=== PATIENT | male | born 1975 | race Caucasian/White ===

== ENCOUNTER 2016-09-16 15:55 | Observation (INO) | payer OTHER ==
[2016-09-16] MEDS ORDERED: NITROGLYCERIN SL TABS 0.4 MG TAB SUBLINGUAL STA (17:04)
[2016-09-16] MEDS ORDERED: ASPIRIN 81 MG CHEW PO STA (17:04)
[2016-09-16] MEDS ORDERED: SODIUM CHLORIDE 0.9% 1,000 ML IV STA (17:04)
--- NOTE | 2016-09-16 17:06 | ED ---
General Adult HPI - General Source: patient, RN notes reviewed Mode of arrival: wheelchair Limitations: no limitations <Ankush Aceves - Last Filed: 09/16/16 17:07> <Justin Bernardo - Last Filed: 09/16/16 19:01> - General Chief complaint: Chest Pain Stated complaint: chest pain Time Seen by Provider: 09/16/16 16:59 - History of Present Illness Initial comments: Patient a 40-year-old male who presents emergency room today with chief complaint of chest pain. Patient does admit that he's had some symptoms of chest pressure off and on over the last few weeks. He states he has been somewhat constant severity goes up and down. He does admit that he's had some sharp pain that is new over the last few days. States he did have a scheduled appointment with family doctor today who did discuss this and was advised coming here to the emergency room for further evaluation. Patient mitts to a history of diabetes. He denies any other past medical complaints. He denies any other symptoms at this time. Patient denies any recent fever, chills, shortness of breath, back pain, abdominal pain, nausea or vomiting, numbness or tingling, dysuria or hematuria, constipation or diarrhea, headaches or visual changes, or any other complaints. (Ankush Aceves) - Related Data Allergies Allergy/AdvReac Type Severity Reaction Status Date / Time No Known Allergies Allergy Verified 09/16/16 17:08 Review of Systems ROS Other: All systems not noted in ROS Statement are negative. <Ankush Aceves - Last Filed: 09/16/16 17:07> ROS Other: All systems not noted in ROS Statement are negative. <Justin Bernardo - Last Filed: 09/16/16 19:01> ROS Statement: Those systems with pertinent positive or pertinent negative responses have been documented in the HPI. Past Medical History Past Medical History: Diabetes Mellitus Additional Past Medical History / Comment(s): sleep apnea History of Any Multi-Drug Resistant Organisms: None Reported Past Surgical History: Back Surgery Past Psychological History: Depression Smoking Status: Never smoker Past Alcohol Use History: None Reported Past Drug Use History: None Reported <Ankush Aceves - Last Filed: 09/16/16 17:07> General Exam Limitations: no limitations <Ankush Aceves - Last Filed: 09/16/16 17:07> General appearance: alert, in no apparent distress, anxious Head exam: Present: atraumatic, normocephalic, normal inspection Eye exam: Present: normal appearance, PERRL, EOMI. Absent: scleral icterus, conjunctival injection, periorbital swelling ENT exam: Present: normal exam, mucous membranes moist Neck exam: Present: normal inspection. Absent: tenderness, meningismus, lymphadenopathy Respiratory exam: Present: normal lung sounds bilaterally. Absent: respiratory distress, wheezes, rales, rhonchi, stridor Cardiovascular Exam: Present: regular rate, normal rhythm, normal heart sounds. Absent: systolic murmur, diastolic murmur, rubs, gallop, clicks GI/Abdominal exam: Present: soft, normal bowel sounds. Absent: distended, tenderness, guarding, rebound, rigid Extremities exam: Present: normal inspection, full ROM, normal capillary refill. Absent: tenderness, pedal edema, joint swelling, calf tenderness Back exam: Present: normal inspection Neurological exam: Present: alert, oriented X3, CN II-XII intact Psychiatric exam: Present: normal affect, normal mood Skin exam: Present: warm, dry, intact, normal color. Absent: rash <Justin Bernardo - Last Filed: 09/16/16 19:01> - General Exam Comments Initial Comments: General: The patient is awake and alert, in no distress, and does not appear acutely ill. Eye: Pupils are equal, round and reactive to light, extra-ocular movements are intact. No nystagmus. There is normal conjunctiva bilaterally. No signs of icterus. Ears, nose, mouth and throat: There are moist mucous membranes and no oral lesions. Neck: The neck is supple, there is no tenderness or JVD. Cardiovascular: There is a regular rate and rhythm. No murmur, rub or gallop is appreciated. Pain reproduced on palpation anterior chest wall. Respiratory: Lungs are clear to auscultation, respirations are non-labored, breath sounds are equal. No wheezes, stridor, rales, or rhonchi. Gastrointestinal: Soft, non-distended, non-tender abdomen without masses or organomegaly noted. There is no rebound or guarding present. No CVA tenderness. Bowel sounds are unremarkable. Musculoskeletal: Normal ROM. Strength 5/5. Sensation intact. Pulses equal bilaterally 2+. Neurological: A&O x 3. CN II-XII intact, There are no obvious motor or sensory deficits. Coordination appears grossly intact. Speech is normal. Skin: Skin is warm and dry and no rashes or lesions are noted. Psychiatric: Cooperative, appropriate mood & affect, normal judgment. (Ankush Aceves) Course <Ankush Aceves - Last Filed: 09/16/16 17:07> <Justin Bernardo - Last Filed: 09/16/16 19:01> Vital Signs 09/16/16 09/16/16 16:43 18:11 Temperature 98.2 F Pulse Rate 84 75 Respiratory 18 16 Rate Blood Pressure 162/91 142/98 O2 Sat by Pulse 98 98 Oximetry - Reevaluation(s) Reevaluation #1: 09/16/16 19:00 Patient does remain with chest pain (Jutsin Bernardo) EKG Findings - EKG Comments: EKG Findings:: EKG performed at 1651: A 12-lead EKG was performed and interpreted by me as showing the following: Rate is 77, and rhythm is normal sinus. There are normal QRS complexes and normal R-wave progression. ST segments have no elevation or depression, and SC segments appear normal. <Ankush Aceves - Last Filed: 09/16/16 17:07> Medical Decision Making <Ankush Aceves - Last Filed: 09/16/16 17:07> - Lab Data Result diagrams: 09/16/16 17:15 09/16/16 17:15 - Radiology Data Radiology results: report reviewed (Chest x-ray is negative for acute disease) <Justin Bernardo - Last Filed: 09/16/16 19:01> - Medical Decision Making 40 male here for evaluation of chest pain. History of diabetes. EKG and troponin are negative. Patient be admitted for cardiac observation trying a troponin telemetry (Justin Bernardo) - Lab Data Lab Results 09/16/16 09/16/16 09/16/16 Range/Units 17:15 17:15 17:15 WBC 8.7 (3.8-10.6) k/uL RBC 4.93 (4.30-5.90) m/uL Hgb 14.2 (13.0-17.5) gm/dL Hct 41.5 (39.0-53.0) % MCV 84.3 (80.0-100.0) fL MCH 28.7 (25.0-35.0) pg MCHC 34.1 (31.0-37.0) g/dL RDW 13.0 (11.5-15.5) % Plt Count 301 (150-450) k/uL Neutrophils % 60 % Lymphocytes % 29 % Monocytes % 5 % Eosinophils % 3 % Basophils % 1 % Neutrophils # 5.2 (1.3-7.7) k/uL Lymphocytes # 2.5 (1.0-4.8) k/uL Monocytes # 0.5 (0-1.0) k/uL Eosinophils # 0.3 (0-0.7) k/uL Basophils # 0.1 (0-0.2) k/uL PT (9.0-12.0) sec INR (<1.1) APTT (22.0-30.0) sec Sodium 142 (137-145) mmol/L Potassium 3.9 (3.5-5.1) mmol/L Chloride 105 (98-107) mmol/L Carbon Dioxide 27 (22-30) mmol/L Anion Gap 10 mmol/L BUN 9 (9-20) mg/dL Creatinine 0.86 (0.66-1.25) mg/dL Est GFR (MDRD) Af Amer >60 (>60 ml/min/1.73 sqM) Est GFR (MDRD) Non-Af >60 (>60 ml/min/1.73 sqM) Glucose 88 (74-99) mg/dL Calcium 9.6 (8.4-10.2) mg/dL Magnesium 2.0 (1.6-2.3) mg/dL Total Bilirubin 0.5 (0.2-1.3) mg/dL AST 28 (17-59) U/L ALT 54 (21-72) U/L Alkaline Phosphatase 88 (38-126) U/L Total Creatine Kinase 99 (55-170) U/L CK-MB (CK-2) 0.3 (0.0-2.4) ng/mL CK-MB (CK-2) Rel Index 0.3 Troponin I <0.012 (0.000-0.034) ng/mL Total Protein 7.6 (6.3-8.2) g/dL Albumin 4.5 (3.5-5.0) g/dL 09/16/16 Range/Units 17:15 WBC (3.8-10.6) k/uL RBC (4.30-5.90) m/uL Hgb (13.0-17.5) gm/dL Hct (39.0-53.0) % MCV (80.0-100.0) fL MCH (25.0-35.0) pg MCHC (31.0-37.0) g/dL RDW (11.5-15.5) % Plt Count (150-450) k/uL Neutrophils % % Lymphocytes % % Monocytes % % Eosinophils % % Basophils % % Neutrophils # (1.3-7.7) k/uL Lymphocytes # (1.0-4.8) k/uL Monocytes # (0-1.0) k/uL Eosinophils # (0-0.7) k/uL Basophils # (0-0.2) k/uL PT 10.2 (9.0-12.0) sec INR 1.0 (<1.1) APTT 23.8 (22.0-30.0) sec Sodium (137-145) mmol/L Potassium (3.5-5.1) mmol/L Chloride (98-107) mmol/L Carbon Dioxide (22-30) mmol/L Anion Gap mmol/L BUN (9-20) mg/dL Creatinine (0.66-1.25) mg/dL Est GFR (MDRD) Af Amer (>60 ml/min/1.73 sqM) Est GFR (MDRD) Non-Af (>60 ml/min/1.73 sqM) Glucose (74-99) mg/dL Calcium (8.4-10.2) mg/dL Magnesium (1.6-2.3) mg/dL Total Bilirubin (0.2-1.3) mg/dL AST (17-59) U/L ALT (21-72) U/L Alkaline Phosphatase (38-126) U/L Total Creatine Kinase (55-170) U/L CK-MB (CK-2) (0.0-2.4) ng/mL CK-MB (CK-2) Rel Index Troponin I (0.000-0.034) ng/mL Total Protein (6.3-8.2) g/dL Albumin (3.5-5.0) g/dL Critical Care Time Critical Care Time: Yes Total Critical Care Time: 31 <Justin Bernardo - Last Filed: 09/16/16 19:01> Disposition <Ankush Aceves - Last Filed: 09/16/16 17:07> <Justin Bernardo - Last Filed: 09/16/16 19:01> Clinical Impression: Chest pain Disposition: ADMITTED IP TO THIS HOSP Condition: Undetermined Instructions: Chest Pain (ED) Referrals: Wesly Cortez DO [Primary Care Provider] - 1-2 days
[2016-09-16 17:29] LABS: Basophils # (A) 0.1 k/uL (0-0.2); Basophils % (A) 1 %; CH 28.9; CHCM 34.4; Eosinophils # (A) 0.3 k/uL (0-0.7); Eosinophils % (A) 3 %; HCT 41.5 % (39.0-53.0); HDW 2.81; HGB 14.2 gm/dL (13.0-17.5); Luc # (Auto) 0.27; Luc % (Auto) 3; Lymphocytes # (A) 2.5 k/uL (1.0-4.8); Lymphocytes % (A) 29 %; MCH 28.7 pg (25.0-35.0); MCHC 34.1 g/dL (31.0-37.0); MCV 84.3 fL (80.0-100.0); Mean Platelet Volume 7.7; Monocytes # (A) 0.5 k/uL (0-1.0); Monocytes % (A) 5 %; Neutrophils # (A) 5.2 k/uL (1.3-7.7); Neutrophils % (A) 60 %; RBC 4.93 m/uL (4.30-5.90); WBC 8.7 k/uL (3.8-10.6); WBC (Perox) 8.63
[2016-09-16 17:40] LABS: ALT 54 U/L (21-72); AST 28 U/L (17-59); Alkaline Phosphatase 88 U/L (38-126); Anion Gap 10 mmol/L; Blood Urea Nitrogen 9 mg/dL (9-20); Calcium 9.6 mg/dL (8.4-10.2); Carbon Dioxide 27 mmol/L (22-30); Chloride 105 mmol/L (98-107); Glucose 88 mg/dL (74-99); Non-African American GFR(MDRD) >60 (>60 ml/min/1.73 sqM); Partial Thromboplastin Time 23.8 sec (22.0-30.0); Potassium 3.9 mmol/L (3.5-5.1); Prothrombin Time 10.2 sec (9.0-12.0); Sodium 142 mmol/L (137-145); Total Bilirubin 0.5 mg/dL (0.2-1.3); Total Protein 7.6 g/dL (6.3-8.2)
[2016-09-16 17:46] LABS: Creatine Kinase 99 U/L (55-170)
[2016-09-16 17:59] LABS: Creatine Kinase MB 0.3 ng/mL (0.0-2.4); Troponin I <0.012 ng/mL (0.000-0.034)
--- NOTE | 2016-09-16 18:34 | XR ---
EXAMINATION TYPE: XR chest 2V DATE OF EXAM: 09/16/2016 6:22 PM COMPARISON: NONE HISTORY: Chest pain TECHNIQUE: Frontal and lateral views of the chest are obtained. FINDINGS: Heart and mediastinum are normal. Lungs are clear. Diaphragm is normal. Bony thorax is int act. There are chest leads. IMPRESSION: Normal chest
[2016-09-16] MEDS ORDERED: NITROGLYCERIN SL TABS 0.4 MG TAB SUBLINGUAL PRN (19:04)
[2016-09-16] MEDS ORDERED: HEPARIN SODIUM,PORCINE 5,000 UNIT/ML 1 ML VIAL IV ONE (19:04)
[2016-09-16] MEDS ORDERED: SODIUM CHLORIDE 0.9% 1,000 ML IV ONE (19:04)
[2016-09-16] MEDS ORDERED: HEPARIN SODIUM,PORCINE/D5W PMX 25,000 UNIT in DEXTROSE/WATER 1 500ML.BAG IV SCH (19:15)
[2016-09-17 00:17] LABS: Creatine Kinase 79 U/L (55-170)
[2016-09-17 00:31] LABS: Creatine Kinase MB <0.2 ng/mL (0.0-2.4); Troponin I <0.012 ng/mL (0.000-0.034)
[2016-09-17] MEDS ORDERED: HEPARIN SODIUM,PORCINE 5,000 UNIT/ML 1 ML VIAL IV PRN (03:52)
[2016-09-17 06:38] LABS: Cholesterol 168 mg/dL (<200); Creatine Kinase 74 U/L (55-170); HDL Cholesterol 29 mg/dL (40-60); Triglycerides 319 mg/dL (<150)
[2016-09-17 06:52] LABS: Creatine Kinase MB <0.2 ng/mL (0.0-2.4); Troponin I <0.012 ng/mL (0.000-0.034)
[2016-09-17 07:00] LABS: Glucose,Whole Blood 100 mg/dL (75-99)
[2016-09-17] MEDS ORDERED: ASPIRIN 325 MG TAB PO SCH (09:00)
[2016-09-17 10:28] VITALS: RESP 18
--- NOTE | 2016-09-17 11:37 | CONS ---
DATE OF CONSULTATION: REASON FOR CONSULTATION: Cardiac evaluation and treatment. HISTORY OF PRESENT ILLNESS: Mr. Unruly Farmer is a known patient of diabetes, hypertension as being on the medication in the past, now currently managed without the medications. Patient is also a diabetic was on insulin, currently on metformin. Patient has been experiencing chest heaviness and tightness constantly for the last 2 - 3 days, never resolved, almost, not subsiding, constant pain, pressure, on a scale of 1 to 10, 4 to 5/10. This pain neither gets worse or better, stays all the time there. EKGs are normal and cardiac enzymes x3 are normal with the unlikely possibility of cardiac but because of being a diabetic, will need to rule out underlying ischemic heart disease. Will also do a d-dimer and if the d-dimer is elevated, will consider doing a CT of the chest with contrast to rule out pulmonary embolism, which is low probability. Patient has been working even though does not do any exercise on a regular basis. Patient's symptoms are not suggestive of classical angina symptoms, atypical chest pains. Current medications other than metformin, no other medications. Review of systems are essentially unremarkable. History of sleep apnea, history of back surgery. Patient is with children. Review of systems otherwise unremarkable. Physical examination revealed well-developed, well-nourished, 40-year-old gentleman, not in any acute distress, oriented x3 with a pulse rate of 70 beats per minute and regular, blood pressure of 136/72, respirations of 16. Head normocephalic. HEENT unremarkable. Neck is supple. No thyroid enlargement. No bruit noted. Good carotid upstroke bilaterally. Chest is symmetrical. Cardiac examination, regular rate and rhythm, S1 and S2. Lungs are clinically to auscultation and percussion. Abdomen is soft, no organomegaly. Active bowel sounds. EXTREMITIES: Peripheral pulses. No pedal edema. GENETICS TEACHER examination grossly within normal limits. EKG revealed normal sinus rhythm. Troponin x3 are negative. ASSESSMENT: 1. Atypical chest pain, rule out underlying ischemic heart disease, low probability. 2. Rule out pulmonary embolism of low probability. 3. History of diabetes mellitus. 4. Moderate exogenous obesity. 5. History of sleep apnea. RECOMMENDATIONS: Will get an echocardiogram and d-dimer test and a stress echo. If these studies are normal, patient will go home with sublingual nitroglycerin, follow with primary care physician and Cardiology.
[2016-09-17 11:59] LABS: Glucose,Whole Blood 119 mg/dL (75-99)
[2016-09-17 12:11] VITALS: BP 154/107; PULSE 84; TEMP 97.6
--- NOTE | 2016-09-17 12:12 | ECHOF ---
Referral Reason:lv function MEASUREMENTS -------- HEIGHT: 180.3 cm WEIGHT: 127.0 kg BP: IVSd: 1.2 cm (0.6 - 1.1) LVIDd: 4.9 cm (3.9 - 5.3) LVPWd: 1.4 cm (0.6 - 1.1) IVSs: 1.9 cm LVIDs: 2.3 cm LVPWs: 2.4 cm Ao Diam: 3.5 cm (2.0 - 3.7) AV Cusp: 2.3 cm (1.5 - 2.6) LA Diam: 3.5 cm (2.7 - 3.8) MV EXCURSION: 14.425 mm (> 18.000) MV EF SLOPE: 72 mm/s (70 - 150) EPSS: 0.3 cm MV E Van: 0.74 m/s MV DecT: 215 ms MV A Van: 0.71 m/s MV E/A Ratio: 1.04 AR PHT: 398 ms RAP: 5.00 mmHg RVSP: 22.04 mmHg FINDINGS -------- Sinus rhythm. This was a technically good study. The left ventricular size is normal. There is mild concentric left ventricular hypertrophy. Overall left ventricular systolic function is normal with, an EF between 55 - 60 %. The right ventricle is normal in size and function. The left atrium is normal in size. The right atrium is normal in size. The aortic valve is trileaflet and appears structurally normal. Trace amount of aortic regurgitation. The mitral valve is normal. There is trace mitral regurgitation. Trace tricuspid regurgitation present. The right ventricular systolic pressure, as measured by Doppler, is 22.04mmHg. There is no pulmonic regurgitation present. The aortic root size is normal. There is no pericardial effusion. CONCLUSIONS -------- 1. Sinus rhythm. 2. There is no pulmonic regurgitation present. 3. The aortic root size is normal. 4. There is no pericardial effusion. 5. This was a technically good study. 6. There is mild concentric left ventricular hypertrophy. 7. Overall left ventricular systolic function is normal with, an EF between 55 - 60 %. 8. The left atrium is normal in size. 9. Trace amount of aortic regurgitation. 10. There is trace mitral regurgitation. 11. Trace tricuspid regurgitation present. 12. The right ventricular systolic pressure, as measured by Doppler, is 22.04mmHg. PROJECT FINANCIAL ANALYST: Bertha Mcelroy RDCS
[2016-09-17 12:48] LABS: Partial Thromboplastin Time 22.9 sec (22.0-30.0)
--- NOTE | 2016-09-17 13:12 | ECHOS ---
DATE OF SERVICE: 09/16/2016 AGE: 40Y SEX: M HT: 72 WT: 280 lbs. Protocol Te: Others: Stage: 3 Dur. of Exercise: 7:00 *Heart Rate Blood Pressure *Rest: 91 Rest: 122/100 * *Max. Achieved: 161 Maximum BP: 172/89 85% PMHR: 151 100% PMHR: 178 *METS: 7.9 INDICATIONS: MEDICATIONS: Baseline rhythm is sinus mechanism, rate of 91, borderline left axis deviation, poor R wave progression. Baseline blood pressure 122/102 mmHg. Patient exercised Te protocol for 7 minutes reaching peak rate of 161 beats per minute, which is equal to 90% maximum predicted heart rate; peak blood pressure 172/89 mmHg. Test was terminated secondary to fatigue. There was no chest pain. Electrocardiographic monitoring revealed no evidence of diagnostic ischemic ST deviation. FINDINGS: Baseline echocardiogram revealed normal wall motion. At peak exercise there was normal wall motion augmentation with no hypokinesis or dyskinesis. CONCLUSION: 1. Decreased exercise tolerance with normal electrocardiograph response to exercise. 2. Normal stress echocardiogram with no evidence of stress-induced ischemia.
[2016-09-17] MEDS ORDERED: metFORMIN 500 MG TAB PO SCH (17:30)
[2016-09-17] MEDS ORDERED: PANTOPRAZOLE 40 MG TABLET PO SCH (17:30)
--- NOTE | 2016-09-17 20:02 | HP ---
DATE OF ADMISSION: 09/16/2016 CHIEF COMPLAINT: Chest pain. Sent from PCP's office. HISTORY OF PRESENT ILLNESS: Mr. Farmer is a 40-year-old male with a known history of hypertension, rjp-epebahd-ykgqvjafd diabetes, type 2, obstructive sleep apnea, anxiety and depression. He was sent from his PCP's office for evaluation of chest pain. Apparently patient has been having chest pain, midsternal; felt like somebody sitting on the chest, 5/10; has been on and off for the past 2 weeks. Patient has no history of [place] in the past. Patient does have a history of GERD. He came to the hospital for further evaluation. Patient denied any recent illness. Two months back he was treated for sinusitis, but no recent illness. Patient does use CPAP at home. Otherwise he denied any nausea or vomiting, abdominal pain. No sick contacts or recent travel. REVIEW OF SYSTEMS: CONSTITUTIONAL: No fever. No chills. RESPIRATORY: No cough or sputum production. CARDIOVASCULAR: No chest pain. No shortness of breath. No leg swelling. ABDOMEN: No nausea, vomiting, abdominal pain. GENITOURINARY: Negative. ENDOCRINE: Negative. PSYCHIATRY: Negative. SKIN: Negative. All other fourteen-point review of systems negative except as above. Past medical history includes: 1. Hypertension. 2. Uzk-ohctahh-bsnhatkto diabetes, type 2. 3. Depression. 4. Anxiety. 5. Bipolar disorder. 6. Obstructive sleep apnea PAST SURGICAL HISTORY: Back surgery. SOCIAL HISTORY: Patient was never a smoker. Denied any alcohol. Denied any drugs or IVDU. FAMILY HISTORY: Denied any history of hypertension, diabetes mellitus or premature heart disease in the family. ALLERGIES: NO KNOWN DRUG ALLERGIES. Home medications include: 1. Aspirin. 2. Cetirizine. 3. Vitamin D3. 4. Prozac. 5. Motrin. 6. Fiber Gummies. 7. [place] carbonate. 8. Omeprazole. 9. Bupropion. 10. Metformin. PHYSICAL EXAMINATION: Tvujk-pql-btsc-old male lying in the bed. Awake, alert, oriented x3. Appears to be in no distress. VITALS: Blood pressure is 136/72. Pulse is 70, respiration 16, temperature afebrile, pulse ox 93% on room air. HEENT: Atraumatic, normocephalic. Neck is supple. No JVD. CVS: S1, S2 heard. No murmurs. No gallop. LUNGS: Bilateral air entry is present. No wheezing. No crackles. ABDOMEN: Soft, nontender. Bowel sounds present. PETROLEUM GEOLOGIST: Awake, alert, oriented x3. No focal deficit. EXTREMITIES: No edema. No clubbing. PSYCHIATRIC: Cooperative. LABORATORY DATA: WBC 8.7, hemoglobin 14.2, platelets 301. D-dimer is 0.3. Triglycerides 319. LDL is 75. Troponin x2 negative. Sodium 142, potassium 3.9, chloride 105. Bicarb is 27. BUN 9, creatinine 0.86. Liver enzymes are not elevated. Albumin 4.5. Chest x-ray: normal chest. EKG: normal sinus rhythm. IMPRESSION: 1. Atypical chest pain, possibly related to gastroesophageal reflux disease. Will rule out acute coronary syndrome. 2. Ksy-qmufexp-yojnxbqcy diabetes, type 2. 3. Hypertension. 4. Hypertriglyceridemia. 5. Anxiety, depression, bipolar disorder. 6. Obstructive sleep apnea, on CPAP. 7. Deep venous thrombosis prophylaxis. DISCUSSION AND PLAN: Patient will be continued on telemetry monitoring. Serial EKGs and troponins. Cardiology recommended a stress test. Will continue the current management. Further recommendations based on clinical course. D-dimer is negative; unlikely PE at this time. Will follow up closely.
[2016-09-17] MEDS ORDERED: FLUoxetine HCL 20 MG CAP PO SCH (21:00)
[2016-09-17] MEDS ORDERED: buPROPion SR 100 MG TABLET.ER PO SCH (21:00)
[2016-09-17] MEDS ORDERED: ATORVASTATIN 20 MG TAB PO SCH (21:00)
[2016-09-18] MEDS ORDERED: LITHIUM CARBONATE 300 MG CAP PO SCH (09:00)
[2016-09-18] MEDS ORDERED: CHOLECALCIFEROL 1,000 UNIT TAB PO SCH (09:00)
--- NOTE | 2016-09-18 15:14 | DS ---
DATE OF ADMISSION: 09/16/2016 DATE OF DISCHARGE: 09/17/2016 DISCHARGE DIAGNOSES: 1. Atypical chest pain possibly gastroesophageal reflux disease related, ruled out acute coronary syndrome. Stress echo negative. 2. Obstructive sleep apnea on CPAP. 3. Hypertension. 4. Diabetes type 2. 5. Depression, anxiety and bipolar disorder. 6. Hypertriglyceridemia. HOSPITAL COURSE: Mr. Farmer is a 40-year-old male admitted to the hospital with complaints of chest pain, was sent from PCPs office and patient's did have chest pain, felt like someone sitting on the chest. Patient does have associated nausea and no vomiting. No headache or dizziness or lightheadedness. Patient was initially started on heparin drip and serial EKGs and troponins were ordered. EKG showed normal sinus rhythm. Troponin x2 were negative. The patient was seen by Cardiology and recommend a stress echocardiogram, which was done, which has been negative. Otherwise, patient is chest pain free now. D-dimer is negative. Unlikely pulmonary embolism at this time. Patient advised to continue with the omeprazole and discontinue Motrin at this time and follow up with primary care physician in 1 to 3 days. Otherwise, patient is stable to be discharged home. DISCHARGE PHYSICAL EXAMINATION: A 40-year-old male lying in the bed comfortably, awake, alert, oriented x3, appears to be in no apparent distress. VITALS: Blood pressure is 154/7, pulse is 84, respiratory rate 18, temperature afebrile, pulse ox 94% on room air. Laboratory data reviewed. Triglycerides is 319. Troponin x3 negative. D-dimer is negative, not elevated. DISCHARGE PHYSICAL EXAMINATION: Done. Discharge medications include: 1. Aspirin 325 mg p.o. daily. 2. Cetirizine 10 mg p.o. daily. 3. Vitamin D3 1000 units p.o. daily. 4. ( ) 20 mg p.o. at bedtime. 5. Fiber gum chew 2 tablets p.o. daily. 6. [place] carbonate 900 mg at bedtime. 7. Tenino carbonate 600 mg p.o. q.a.m. 8. Omeprazole 20 mg p.o. a.c. b.i.d. 9. Bupropion 200 mg p.o. b.i.d. 10. Metformin 500 mg p.o. b.i.d. Patient will be discharged home in stable condition with activity as tolerated. Heart healthy diet and diabetic diet. Follow with Dr. Wesly Cortez in 1 to 2 days.
== END 2016-09-17 16:50 | disposition home or self-care (01) ==
LOC: EC 15:55 → 3OBS 18:59
PROVIDERS: ADMIT Hospitalist; ATTEND Hospitalist
DX: R07.89 Other chest pain (principal); E11.9 Type 2 diabetes mellitus without complications; I10 Essential (primary) hypertension; R11.0 Nausea; E78.1 Pure hyperglyceridemia; F31.9 Bipolar disorder, unspecified; G47.33 Obstructive sleep apnea (adult) (pediatric); F41.9 Anxiety disorder, unspecified; E66.09 Other obesity due to excess calories; Z68.38 Body mass index [BMI] 38.0-38.9, adult; K21.9 Gastro-esophageal reflux disease without esophagitis; Z79.82 Long term (current) use of aspirin; Z79.84 Long term (current) use of oral hypoglycemic drugs; Z79.899 Other long term (current) drug therapy; Z99.89 Dependence on other enabling machines and devices
CPT/HCPCS: 96361 ×3; 96376 ×3; 99291 ×2; 93005 ×2; 96365; 96366 ×2; 36415; 93017; 93306; 93350; 85379; 80061; 80053; 82550 ×2; 82553 ×2; 83735; 84484 ×2; 85025; 85610; 85730 ×2; 71020; G0378 ×2; J1644 ×3; S0106

== ENCOUNTER → 2016-11-26 | Outpatient (CLI) | payer OTHER ==
--- NOTE | 2016-11-26 16:10 | MR ---
EXAMINATION TYPE: MR shoulder RT wo con DATE OF EXAM: 11/26/2016 COMPARISON: NONE HISTORY: RT shoulder pain, limited range of motion TECHNIQUE: Multiplanar, multisequence imaging of the right shoulder is performed without contrast. FINDINGS: Rotator Cuff: There is increased signal in the subacromial bursa and subdeltoid bursa. There is some signal transverses the distal supraspinatus tendon suggestive for perforation. Series 401 image 10. Acromioclavicular Joint: Hypertrophy. This is greater superior than inferior but some impingement on the underlying supraspinatus tendon is evident. Glenohumeral Joint: Narrowed Labrum: The labrum appears grossly intact given limitation of non-arthrogram study. Biceps Tendon: The long head of biceps is in normal location within bicipital groove. Bone marrow signal: No focal abnormal marrow signal is appreciated. Other: No additional significant abnormality is appreciated. IMPRESSION: 1. Small perforation distal supraspinatus tendon with moderate tendinosis. 2. Complete tear is not identified.
== END | disposition home or self-care (01) ==
LOC: RADMRIMAIN 09:57
PROVIDERS: ATTEND Physician Assistant Medical
DX: M67.813 Other specified disorders of tendon, right shoulder (principal)